=== PATIENT | male | born 1960 | race Caucasian/White ===

== ENCOUNTER 2016-11-28 15:40 | Emergency (ER) | payer MEDICARE, OTHER ==
[~2016-11-28] VITALS: Ht 172.7 cm; Wt 57.6 kg
[~2016-11-28 15:40] MED LIST: 1-ME1LIQ PO; ASPI325T PO; DIAZ10TA PO; LORTA10 PO; METO50TA OR; OMEP20TA PO; TIZA4 PO; TRIL135C PO
[2016-11-28 15:59] VITALS: BP 143/67; PULSE 111; RESP 16; TEMP 98.1; O2SAT 97
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
[2016-11-28 17:19] LABS: AUTOMATED NEUTROPHIL # 2.7 TH/MM3 (1.8-7.7); BASOPHIL % 0.6 % (0.0-2.0); EOSINOPHIL % 0.3 % (0.0-4.0); HEMATOCRIT 47.5 % (39.0-51.0); HEMO FLAGS DIFF FINAL; LYMPH % 37.9 % (9.0-44.0); LYMPHOCYTE # 1.9 TH/MM3 (1.0-4.8); MEAN CELL VOLUME 106.2 FL (80.0-100.0); MEAN CORPUSCULAR HEMOGLOBIN 36.3 PG (27.0-34.0); MEAN CORPUSCULAR HGB CONC 34.2 % (32.0-36.0); MONO % 8.1 % (0.0-8.0); NEUT % 53.1 % (16.0-70.0); PLATELET COUNT 205 TH/MM3 (150-450); RED BLOOD COUNT 4.47 MIL/MM3 (4.50-5.90); RED CELL DISTRIBUTION WIDTH 13.1 % (11.6-17.2); WHITE BLOOD COUNT 5.1 TH/MM3 (4.0-11.0)
[2016-11-28 17:27] LABS: ANION GAP 11 MEQ/L (5-15)
[2016-11-28 18:01] LABS: ALKALINE PHOSPHATASE 53 U/L (45-117); ALT (GPT) 59 U/L (12-78); AST (GOT) 88 U/L (15-37); BICARBONATE 22.1 MEQ/L (21.0-32.0); BLOOD UREA NITROGEN 7 MG/DL (7-18); CHLORIDE 109 MEQ/L (98-107); GLOMERULAR FILTRATION RATE 63 ML/MIN (>89); POTASSIUM 4.1 MEQ/L (3.5-5.1); SODIUM (NA) 142 MEQ/L (136-145); TOTAL BILIRUBIN ADULT 0.4 MG/DL (0.2-1.0)
[2016-11-28 18:02] LABS: ACETAMINOPHEN LESS THAN 2.0 MCG/ML (10.0-30.0); ALCOHOL 316 MG/DL (0-5)
[2016-11-28] MEDS ORDERED: ONDANSETRON ODT 4 MG TAB PO PRN (19:00)
[2016-11-28] MEDS ORDERED: LORazepam 2 MG TAB PO PRN (19:00)
[2016-11-28] MEDS ORDERED: ACETAMINOPHEN 325 MG TAB PO PRN (19:00)
[2016-11-28] MEDS ORDERED: LORazepam 1 MG TAB PO PRN (19:00)
[2016-11-28] MEDS ORDERED: FLUMAZENIL 0.5 MG/5 ML VIAL IV PUSH PRN (19:00)
[2016-11-28] MEDS ORDERED: LORazepam 2 MG/ML VIAL IV PUSH PRN ×4 (19:00)
[2016-11-28 22:20] VITALS: BP 86/54; PULSE 80; RESP 18; O2SAT 96
[2016-11-29 01:55] VITALS: BP 131/68; PULSE 112; RESP 18; O2SAT 95
[2016-11-29 06:34] VITALS: BP 123/68; PULSE 113; RESP 18; O2SAT 96
[2016-11-29 11:50] VITALS: BP 124/74; PULSE 128; RESP 18; TEMP 97.7; O2SAT 97
[2016-11-29] MEDS ORDERED: HYDR-3580 PO (12:24)
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
--- NOTE | 2016-11-29 13:28 | PD ---
Physical Exam Time Seen by Provider: 13:[address] Medina evaluated the patient, lifted the Foreman act and the patient will be discharged home. Data Data Last Documented VS Vital Signs Date Time Temp Pulse Resp B/P (MAP) Pulse Ox O2 Delivery O2 Flow Rate FiO2 11/29/16 11:50 97.7 128 18 124/74 (91) 97 Room Air Orders Orders Complete Blood Count With Diff (11/28/16 16:08) Comprehensive Metabolic Panel (11/28/16 16:08) Psych Screen (11/28/16 16:08) Drug Screen, Random Urine (11/28/16 16:08) Alcohol (Ethanol) (11/28/16 16:08) Salicylates (Aspirin) (11/28/16 16:08) Tylenol (Acetaminophen) (11/28/16 16:08) Alcohol Withdrawal Asmt-Ciwa ONCE (11/28/16 18:48) Ondansetron Odt (Zofran Odt) (11/28/16 19:00) Acetaminophen (Tylenol) (11/28/16 19:00) Flumazenil Inj (Romazicon Inj) (11/28/16 19:00) Lorazepam (Ativan) (11/28/16 19:00) Lorazepam Inj (Ativan Inj) (11/28/16 19:00) Lorazepam (Ativan) (11/28/16 19:00) Lorazepam Inj (Ativan Inj) (11/28/16 19:00) Lorazepam Inj (Ativan Inj) (11/28/16 19:00) Lorazepam Inj (Ativan Inj) (11/28/16 19:00) Diet Regular Basic (11/29/16 Breakfast) Diet Regular Basic (11/29/16 Lunch) Diet Regular Basic (11/29/16 Dinner) Labs Laboratory Tests Test 11/28/16 16:30 11/29/16 08:20 White Blood Count 5.1 TH/MM3 Red Blood Count 4.47 MIL/MM3 Hemoglobin 16.2 GM/DL Hematocrit 47.5 % Mean Corpuscular Volume 106.2 FL Mean Corpuscular Hemoglobin 36.3 PG Mean Corpuscular Hemoglobin Concent 34.2 % Red Cell Distribution Width 13.1 % Platelet Count 205 TH/MM3 Mean Platelet Volume 7.8 FL Neutrophils (%) (Auto) 53.1 % Lymphocytes (%) (Auto) 37.9 % Monocytes (%) (Auto) 8.1 % Eosinophils (%) (Auto) 0.3 % Basophils (%) (Auto) 0.6 % Neutrophils # (Auto) 2.7 TH/MM3 Lymphocytes # (Auto) 1.9 TH/MM3 Monocytes # (Auto) 0.4 TH/MM3 Eosinophils # (Auto) 0.0 TH/MM3 Basophils # (Auto) 0.0 TH/MM3 CBC Comment DIFF FINAL Differential Comment Blood Urea Nitrogen 7 MG/DL Creatinine 1.19 MG/DL Random Glucose 107 MG/DL Total Protein 8.2 GM/DL Albumin 4.2 GM/DL Calcium Level 9.0 MG/DL Alkaline Phosphatase 53 U/L Aspartate Amino Transf (AST/SGOT) 88 U/L Alanine Aminotransferase (ALT/SGPT) 59 U/L Total Bilirubin 0.4 MG/DL Sodium Level 142 MEQ/L Potassium Level 4.1 MEQ/L Chloride Level 109 MEQ/L Carbon Dioxide Level 22.1 MEQ/L Anion Gap 11 MEQ/L Estimat Glomerular Filtration Rate 63 ML/MIN Salicylates Level 4.6 MG/DL Acetaminophen Level LESS THAN 2.0 MCG/ML Ethyl Alcohol Level 316 MG/DL Urine Opiates Screen NEG Urine Barbiturates Screen NEG Urine Amphetamines Screen NEG Urine Benzodiazepines Screen POS Urine Cocaine Screen NEG Urine Cannabinoids Screen NEG MDM Supervised Visit with KEVIN: Yes Narrative Course Dr. Polanco evaluated the patient, lifted the [place] act and the patient will be discharged home. Patient contracts safety. Denies suicidal or homicidal ideations. [facility] Has friends and family for support. Patient is medically cleared for discharge. Diagnosis Primary Impression: Adjustment disorder with mixed disturbance of emotions and conduct Additional Impression: Alcohol abuse Referrals: [facility] Patient Instructions: General Instructions, Mood Disorders (ED) Departure Forms: Tests/Procedures Additional Instruction: Contract safety to your self and others Follow-up with psychiatry Follow-up with primary care provider Follow-up with Jesse Edward Return to the emergency department immediately with worsening of symptoms Scripts Hydrocodone-Acetaminophen (Hydrocodone-Acetaminophen) 7.5-325 mg Tab 1 TAB PO Q6H Y for PAIN, #20 TAB 0 Refills Prov: Miky Medina MD 11/29/16 Disposition: 01 DISCHARGE HOME Krystina Vazquez Nov 29, 2016 13:28
== END 2016-11-29 14:22 | disposition home or self-care (01) ==
LOC: NEDAMB 15:40 → NEPJ 11-29 14:22
DX: F33.1 Major depressive disorder, recurrent, moderate (principal); F43.25 Adjustment disorder with mixed disturbance of emotions and conduct; I10 Essential (primary) hypertension; F10.10 Alcohol abuse, uncomplicated; Z72.0 Tobacco use
CPT/HCPCS: 80053; 80307; 85025; 99284